=== PATIENT | female | born 1990 | race Two or more races ===

== ENCOUNTER 2017-06-15 19:10 | Emergency (ER) | payer OTHER ==
[~2017-06-15] VITALS: Ht 162.6 cm; Wt 87.0 kg
[2017-06-15] MEDS ORDERED: IBUPROFEN 800MG TABLET PO ONE (21:15)
[2017-06-15] MEDS ORDERED: TETANUS, DIPHTHERIA, PERTUSSIS VAC/PF 0.5ML (>7YR OLD) IM ONE (21:15)
[2017-06-15] MEDS ORDERED: BACITRACIN ZINC OINT UDPKT TOP ONE (21:15)
[2017-06-15 21:25] VITALS: BP 124/73
== END 2017-06-15 22:00 | disposition home or self-care (01) ==
LOC: ER 19:10
DX: S61.451A Open bite of right hand, initial encounter (principal); W54.0XXA Bitten by dog, initial encounter; Y93.89 Activity, other specified; Y99.8 Other external cause status; Y92.89 Other specified places as the place of occurrence of the external cause
CPT/HCPCS: 90471; 90715; 99283